=== PATIENT | female | born 1995 ===

== ENCOUNTER 2018-06-04 13:51 | Emergency (ER) | payer OTHER ==
[2018-06-04 13:52] VITALS: BMI 22.3
[2018-06-04 14:19] VITALS: TEMP 98.7; O2SAT 99
--- NOTE | 2018-06-04 15:42 | RAD ---
Date of service: 06/04/2018 HISTORY: r/o infiltrate COMPARISON: No prior. TECHNIQUE: Chest PA and lateral FINDINGS: LUNGS: No active pulmonary disease. PLEURA: No significant pleural effusion identified. No pneumothorax apparent. CARDIOVASCULAR: Normal. OSSEOUS STRUCTURES: Mild levoscoliosis centered at the thoracolumbar junction with may represent compensatory dextroscoliosis centered in the mid to lower thoracic region. VISUALIZED UPPER ABDOMEN: Normal. OTHER FINDINGS: None. IMPRESSION: No active disease.
[2018-06-04 16:21] VITALS: BP 105/71; PULSE 75; RESP 18
--- NOTE | 2018-06-04 18:56 | C.PDOC ---
History Of Present Illness 22 year old female presents to the ER with a complaint of dry cough for one week associated with mild sore throat and subjective fever. Denies nausea, vomiting, recent travel, or sick contact. Chief Complaint (Nursing): ENT Problem History Per: Patient History/Exam Limitations: no limitations Onset/Duration Of Symptoms: Days Current Symptoms Are (Timing): Still Present Location Of Pain: Throat Associated Symptoms: Fever (Subjective), Cough. denies: Sputum, Nausea, Vomiting Ear Symptoms: Bilateral: None Recent travel outside of the [place]: No Past Medical History Reviewed: Historical Data, Nursing Documentation, Vital Signs Vital Signs: Last Vital Signs Temp 98.7 F 06/04/18 14:16 Pulse 75 06/04/18 16:20 Resp 18 06/04/18 16:20 BP 105/71 06/04/18 16:20 Pulse Ox 99 06/04/18 16:20 - Medical History PMH: Anemia, Bronchitis Denies: Depression Surgical History: Appendectomy - [facility] Procedures INJECT/INFUSE ELECTROLYT (02/09/13) INJECT/INFUSE NEC (02/09/13) Family History: States: Unknown Family Hx - Social History Hx Tobacco Use: Yes (sometimes) Hx Alcohol Use: Yes Hx Substance Use: Yes Review Of Systems Constitutional: Positive for: Fever (Subjective) ENT: Positive for: Throat Pain Cardiovascular: Negative for: Chest Pain, Palpitations Respiratory: Positive for: Cough. Negative for: Sputum Gastrointestinal: Negative for: Nausea, Vomiting Skin: Negative for: Rash Physical Exam - Physical Exam Appears: Non-toxic Skin: Normal Color, Warm, Dry Head: Atraumatic, Normacephalic Eye(s): bilateral: Normal Inspection Ear(s): Bilateral: Normal Nose: Normal Oral Mucosa: Moist Throat: Normal, No Erythema, No Exudate Neck: Normal, Supple Chest: Symmetrical, No Tenderness Cardiovascular: Rhythm Regular Respiratory: Normal Breath Sounds, No Rales, No Rhonchi, No Wheezing Gastrointestinal/Abdominal: Soft, No Tenderness Neurological/Psych: Oriented x3, Normal Speech ED Course And Treatment O2 Sat by Pulse Oximetry: 99 (Room air) Pulse Ox Interpretation: Normal - Radiology CXR: Viewed By Me, Read By Radiologist CXR Interpretation: Yes: No Acute Disease Progress Note: CXR ordered. Disposition - Disposition Referrals: [facility] [Outside] [facility] [Outside] Disposition: HOME/ ROUTINE Disposition Time: 16:00 Condition: GOOD Additional Instructions: COOPER TRAN, thank you for letting us take care of you today. The emergency medical care you received today was directed at your acute symptoms. If you were prescribed any medication, please fill it and take as directed. It may take several days for your symptoms to resolve. Return to the Emergency Department if your symptoms worsen, do not improve, or if you have any other problems. Please contact your doctor or call one of the physicians/clinics you have been referred to that are listed on the Patient Visit Information form that is included in your discharge packet. Bring any paperwork you were given at discharge with you along with any medications you are taking to your follow up visit. Our treatment cannot replace ongoing medical care by a primary care provider outside of the emergency department. Thank you for allowing the [facility] team to be part of your care today. Follow up with our clinic this week for re-evaluation and further management. Prescriptions: Ibuprofen [Motrin] 600 mg PO Q6 PRN #20 tab PRN Reason: Pain, Moderate (4-7) Instructions: Viral Syndrome (DC) Forms: i[employer] (Tongan), Work Excuse - Clinical Impression Clinical Impression: Viral syndrome - Scribe Statement The provider has reviewed the documentation as recorded by the Scribe Darrius Barbour All medical record entries made by the Scribe were at my direction and personally dictated by me. I have reviewed the chart and agree that the record accurately reflects my personal performance of the history, physical exam, medical decision making, and the department course for this patient. I have also personally directed, reviewed, and agree with the discharge instructions and disposition.
== END 2018-06-04 16:21 | disposition home or self-care (01) ==
LOC: C.ER 13:51
DX: B34.9 Viral infection, unspecified (principal)